=== PATIENT | female | born 1950 | race Caucasian/White ===

== ENCOUNTER 2016-08-27 06:01 | Day surgery (SDC) | payer OTHER ==
[2016-08-25 15:15] VITALS: BMI 26.5
[2016-08-27] MEDS ORDERED: LIDOCAINE HCL 2% (20ML MULTI-DOSE VIAL) NR ONE (07:17)
[2016-08-27] MEDS ORDERED: ePHEDrine SULFATE 50 MG/1 ML AMPULE ONE (07:18)
[2016-08-27] MEDS ORDERED: SUCCINYLCHOLINE CHLORIDE 200 MG/10 ML VIAL ONE (07:19)
[2016-08-27] MEDS ORDERED: PROPOFOL 20 ML ONE ×4 (07:19)
[2016-08-27] MEDS ORDERED: MIDAZOLAM HCL 2 MG/2 ML SINGLE DOSE VIAL ONE (07:19)
[2016-08-27 08:22] VITALS: TEMP 97.7
[2016-08-27] MEDS ORDERED: ACETAMINOPHEN 325 MG TABLET (FP) PO PRN (08:34)
[2016-08-27] MEDS ORDERED: oxyCODONE HCL 5 MG TABLET PO PRN ×2 (08:34)
[2016-08-27] MEDS ORDERED: ONDANSETRON 4 MG/2 ML VIAL IVPUSH PRN (08:34)
[2016-08-27] MEDS ORDERED: LACTATED RINGERS SOLUTION 1,000 ML IV SCH (08:45)
[2016-08-27 11:50] VITALS: BP 110/56; PULSE 71
--- NOTE | 2016-09-01 11:13 | OP ---
DATE OF OPERATION: 08/27/2016 PREOPERATIVE DIAGNOSIS: Left carpal tunnel syndrome. POSTOPERATIVE DIAGNOSIS: Left carpal tunnel syndrome. OPERATIVE PROCEDURE: Left carpal tunnel release. ANESTHESIA: Local with sedation. COMPLICATIONS: None. ESTIMATED BLOOD LOSS: Minimal. INDICATIONS FOR PROCEDURE: The patient is a 66-year-old female with above finding indicated for operative treatment. Risks, benefits, and alternatives were discussed with the patient at length. Proper informed consent was obtained. DESCRIPTION OF PROCEDURE: After proper identification of patient and correct operative site, the patient was brought to the operating room and placed supine on the table, prominences well padded. Sedation was given by the anesthesiologist. Local anesthesia was given with 2% lidocaine. Left upper extremity was prepped and draped in a sterile fashion. A well-padded tourniquet was placed with sterile prep. Esmarch bandage used to exsanguinate the left upper extremity. Tourniquet was inflated to 250 mmHg. A longitudinal incision was made at the proximal aspect of the palm. Incision was taken sharply through the skin with sharp and blunt dissection in the subcutaneous tissues. Palmar fascia was divided longitudinally. The transverse carpal ligament was divided longitudinally along with the distal 4 cm of the antebrachial fascia under direct visualization with loupe magnification. This provided complete release of the median nerve at the wrist. The wound was irrigated with copious amounts of normal saline and repaired with a 5-0 nylon suture. Sterile dressings were applied. The patient was reversed from anesthesia and brought to the recovery room in stable condition. She tolerated the procedure well. Chetan [id number]
== END 2016-08-27 09:15 | disposition home or self-care (01) ==
LOC: FASU 06:01
PROVIDERS: ATTEND Orthopaedic Surgery Hand Surgery
PROC: 01N50ZZ Release Median Nerve, Open Approach (ICD-10-PCS; principal; 2016-08-27 07:50)
DX: G56.02 Carpal tunnel syndrome, left upper limb (principal)

== ENCOUNTER 2016-12-31 07:28 | Day surgery (SDC) | payer OTHER ==
[2016-12-25 11:55] VITALS: BMI 26.5
[2016-12-31] MEDS ORDERED: MIDAZOLAM HCL 2 MG/2 ML SINGLE DOSE VIAL ONE (07:57)
[2016-12-31] MEDS ORDERED: ONDANSETRON 4 MG/2 ML VIAL IVPUSH PRN (08:43)
[2016-12-31] MEDS ORDERED: oxyCODONE HCL 5 MG TABLET PO PRN (08:43)
[2016-12-31] MEDS ORDERED: ACETAMINOPHEN 325 MG TABLET (FP) PO PRN (08:43)
[2016-12-31] MEDS ORDERED: LACTATED RINGERS SOLUTION 1,000 ML IV SCH (08:45)
[2016-12-31 09:51] VITALS: BP 106/52; PULSE 56; TEMP 98
--- NOTE | 2017-01-02 08:39 | OP ---
DATE OF OPERATION: 12/31/2016 PREOPERATIVE DIAGNOSIS: Right carpal tunnel syndrome. POSTOPERATIVE DIAGNOSIS: Right carpal tunnel syndrome. OPERATIVE PROCEDURE: Right carpal tunnel release. ANESTHESIA: Local with sedation. COMPLICATIONS: None. ESTIMATED BLOOD LOSS: Minimal. INDICATION FOR PROCEDURE: The patient is a 66-year-old female with the above finding indicated for operative treatment. Risks, benefits, and alternatives were discussed with the patient at length. Proper informed consent was obtained. PROCEDURE: After proper identification of the patient and the correct operative site, the patient was brought to the operating room and placed supine on the operating room table. All bony prominences were well padded. Sedation was given by the anesthesiologist. Local anesthesia was given with 2% lidocaine. Right upper extremity was prepped and draped in the usual sterile fashion. A well-padded tourniquet was placed with a sterile prep. An Esmarch bandage was used to exsanguinate the right upper extremity, and tourniquet was inflated to 250 mmHg. A longitudinal incision was made in the proximal aspect of the palm. Incision was taken sharply through the skin, with blunt and sharp dissection through the subcutaneous tissues. Palmar fascia was divided longitudinally. Transcarpal ligament was divided longitudinally. This was done under direct visualization under loupe magnification. This provided complete release of the median nerve at the wrist. Wound was irrigated with copious amounts of normal saline and repaired with a 5-0 nylon suture. Sterile dressings were applied. Patient was reversed from sedation and brought to the recovery room in stable condition. She tolerated the procedure well. Chetan [id number]
== END 2016-12-31 09:52 | disposition home or self-care (01) ==
LOC: FASU 07:28
PROVIDERS: ATTEND Orthopaedic Surgery Hand Surgery
PROC: 01N50ZZ Release Median Nerve, Open Approach (ICD-10-PCS; principal; 2016-12-31 08:46)
DX: G56.01 Carpal tunnel syndrome, right upper limb (principal)

== ENCOUNTER 2019-04-20 09:03 | Day surgery (SDC) | payer OTHER ==
[2019-04-19 16:54] VITALS: BMI 28.5
[2019-04-20 12:16] VITALS: BP 130/70; PULSE 68; TEMP 97.9
--- NOTE | 2019-04-21 11:11 | PATH ---
Surgical Pathology Report Patient Name: KATY OMALLEY [facility]. Rec. #: [id number] /Age/Gender: 1950 (Age: 68) / F Account: [id number] Location: [facility]-ENDOSCOPY Taken: 04/20/2019 Received: 04/20/2019 Reported: 04/21/2019 Physicians: Kenny Paulson M.D. Specimen(s) Received A: RIGHT COLON B: DESCENDING COLON Clinical History Diverticulosis Postoperative diagnosis: Colon polyp, diverticulosis Final Diagnosis A. COLON, RIGHT, POLYPS, POLYPECTOMY: POLYPOID COLONIC MUCOSA WITH PROMINENT LYMPHOID AGGREGATE. POLYPOID COLONIC MUCOSA WITHOUT SIGNIFICANT PATHOLOGIC FINDINGS. B. DESCENDING COLON, POLYP, POLYPECTOMY: POLYPOID COLONIC MUCOSA WITH MILD SUPERFICIAL HYPERPLASTIC FEATURES. Electronically Signed Deann Rodriguez M.D. Gross Description A. Received in formalin, labeled "polyps right colon" are 5 lopez, irregular portions of soft tissue ranging from 0.2-0.3 cm. in greatest dimension. The specimens are submitted in toto in one cassette. B. Received in formalin, labeled "polyp descending colon" is a lopez, irregular portion of soft tissue measuring 0.2 cm. in greatest dimension. The specimen is submitted in toto in one cassette. 04/20/2019 saudi04/20/2019
== END 2019-04-20 12:05 | disposition home or self-care (01) ==
LOC: JASU-ENDO 09:03
PROVIDERS: ATTEND Internal Medicine Gastroenterology
PROC: 0DBM8ZX Excision of Descending Colon, Via Natural or Artificial Opening Endoscopic, Diagnostic (ICD-10-PCS; 2019-04-20)
PROC: 0DBK8ZX Excision of Ascending Colon, Via Natural or Artificial Opening Endoscopic, Diagnostic (ICD-10-PCS; principal; 2019-04-20 09:45)
DX: Z12.11 Encounter for screening for malignant neoplasm of colon (principal); Z86.010 Personal history of colon polyps; D12.2 Benign neoplasm of ascending colon; D12.4 Benign neoplasm of descending colon; K57.30 Diverticulosis of large intestine without perforation or abscess without bleeding
CPT/HCPCS: 82962

== ENCOUNTER 2020-06-09 19:42 | Emergency (ER) | payer OTHER ==
[2020-06-09 20:25] VITALS: BP 154/67; PULSE 75; TEMP 98.7; BMI 28.8
[2020-06-09] MEDS ORDERED: ACETAMINOPHEN 500 MG TABLET (FP) PO ONE (20:53)
[2020-06-09] MEDS ORDERED: ACETAMINOPHEN 325 MG TABLET (FP) ONE (20:55)
[2020-06-09] MEDS ORDERED: DIPHTH,PERTUSS(ACELL),TET 0.5 ML DISP.SYRIN IM ONE ×2 (22:29→22:34)
== END 2020-06-09 22:42 | disposition home or self-care (01) ==
LOC: FER 19:42
PROC: 3E0234Z Introduction of Serum, Toxoid and Vaccine into Muscle, Percutaneous Approach (ICD-10-PCS; principal; 2020-06-09)
DX: M79.641 Pain in right hand (principal); M25.561 Pain in right knee
CPT/HCPCS: 73110-TC-LT-FY; 73130-TC-LT-FY; 73562-TC-RT-FY; 90715; 99284-25

== ENCOUNTER 2021-09-07 17:32 | Observation (INO) | payer OTHER ==
[2021-09-07] MEDS ORDERED: MECLIZINE HCL 25 MG TABLET (FP) PO ONE (18:09)
[2021-09-07] MEDS ORDERED: SODIUM CHLORIDE 1,000 ML IV SCH (18:15)
[2021-09-07] MEDS ORDERED: MECLIZINE HCL 25 MG TABLET (FP) ONE (18:26)
[2021-09-07 18:43] LABS: INR 0.99 (0.83-1.09); PROTHROMBIN TIME (PATIENT) 11.4 SEC (9.7-13.0)
[2021-09-07 19:01] LABS: HEMATOCRIT 38.6 % (32.4-45.2); HEMOGLOBIN 13.6 G/dL (10.7-15.3); MCHC 35.3 g/dl (32.0-36.0); MEAN CELL VOLUME 85.3 fl (80-96); MEAN PLT VOLUME 9.5 fl (7.5-11.1); PLATELET COUNT 254.4 10^3/uL (134-434); RBC 4.53 10^6/uL (3.60-5.2); RDW 14.3 % (11.6-15.6); WHITE BLOOD COUNT 7.7 10^3/uL (4.0-10.8)
[2021-09-07 19:03] LABS: ALBUMIN 3.7 g/dl (3.4-5.0); BILIRUBIN,TOTAL 0.5 mg/dl (0.2-1); CALCIUM 9.3 mg/dl (8.5-10); CREATININE 1.3 mg/dl (0.55-1.3); TOT PROT 6.1 g/dl (6.4-8.2)
[2021-09-07 19:10] LABS: PLATELET ESTIMATE ADEQUATE
[2021-09-07 19:12] LABS: CHOLESTEROL 179 mg/dl (50-200); HDL CHOLESTEROL 65 mg/dl (40-60); TRIGLYCERIDES 184 mg/dl (0-150)
[2021-09-07 19:19] LABS: LDL CHOLESTEROL (ONLY SJRH) 78 mg/dL (5-100)
[2021-09-07 22:20] VITALS: BMI 27.1
[2021-09-08] MEDS: ACETAMINOPHEN 325 MG TABLET (FP) PO PRN ×2 (02:46→09:59)
[2021-09-08] MEDS: ENOXAPARIN NA (PORCINE) 40 MG/0.4 ML DISP.SYRIN SQ SCH (10:00)
[2021-09-08 10:03] LABS: ALBUMIN 3.1 g/dl (3.4-5.0); BILIRUBIN,TOTAL 0.4 mg/dl (0.2-1); CALCIUM 8.8 mg/dl (8.5-10); CREATININE 0.7 mg/dl (0.55-1.3); MAGNESIUM 1.9 mg/dL (1.8-2.4); TOT PROT 5.7 g/dl (6.4-8.2)
[2021-09-08] MEDS ORDERED: POTASSIUM CHLORIDE TABS 20 MEQ TABLET.ER (FP) PO ONE (11:00)
[2021-09-08 11:16] LABS: HEMATOCRIT 36.8 % (32.4-45.2); HEMOGLOBIN 12.8 G/dL (10.7-15.3); MCH 30.1 pg (25.7-33.7); MCHC 34.8 g/dl (32.0-36.0); MEAN CELL VOLUME 86.6 fl (80-96); MEAN PLT VOLUME 9.6 fl (7.5-11.1); PLATELET COUNT 217.3 10^3/uL (134-434); RBC 4.25 10^6/uL (3.60-5.2); RDW 14.9 % (11.6-15.6); WHITE BLOOD COUNT 6.3 10^3/uL (4.0-10.8)
[2021-09-08] MEDS: INSULIN SLIDING SCALE (NOVOLOG) 1 VIAL SQ SCH ×3 (11:35→21:27)
[2021-09-08 11:59] LABS: PLATELET ESTIMATE ADEQUATE
[2021-09-08] MEDS: FAMOTIDINE 20 MG TABLET PO SCH (12:24)
[2021-09-08] MEDS: LEVOTHYROXINE NA 50 MCG TABLET (FP) PO SCH (12:24)
[2021-09-08] MEDS: SODIUM CHLORIDE 1,000 ML IV SCH (12:24)
[2021-09-08] MEDS: SUCRALFATE 1 GM TABLET (FP) PO SCH ×2 (16:37→22:59)
[2021-09-08] MEDS ORDERED: ATORVASTATIN CA 20 MG TABLET (FP) PO SCH (22:00)
[2021-09-08] MEDS ORDERED: LOSARTAN POTASSIUM 50 MG TABLET PO SCH (22:00)
[2021-09-08] MEDS ORDERED: amLODIPine BESYLATE 5 MG TABLET (FP) PO SCH ×2 (22:00)
[2021-09-08] MEDS ORDERED: ATORVASTATIN CA 10 MG TABLET (FP) PO SCH (22:00)
[2021-09-08] MEDS ORDERED: MONTELUKAST NA 10 MG TABLET PO SCH (22:00)
[2021-09-09] MEDS: SUCRALFATE 1 GM TABLET (FP) PO SCH ×3 (06:59→16:16)
[2021-09-09] MEDS: LEVOTHYROXINE NA 50 MCG TABLET (FP) PO SCH (06:59)
[2021-09-09] MEDS: INSULIN SLIDING SCALE (NOVOLOG) 1 VIAL SQ SCH ×3 (06:59→16:16)
[2021-09-09] MEDS: FAMOTIDINE 20 MG TABLET PO SCH (09:29)
[2021-09-09] MEDS: ENOXAPARIN NA (PORCINE) 40 MG/0.4 ML DISP.SYRIN SQ SCH (09:36)
[2021-09-09] MEDS ORDERED: LORATADINE 10 MG TABLET PO SCH (10:00)
[2021-09-09] MEDS: SODIUM CHLORIDE 1,000 ML IV SCH (11:00)
[2021-09-09 17:13] VITALS: BP 130/64; PULSE 69; TEMP 98.1
== END 2021-09-09 17:14 | disposition home or self-care (01) ==
LOC: FER 17:32 → INTOOBSV 20:00 → FM/S 20:00
PROVIDERS: ADMIT Internal Medicine; ATTEND Internal Medicine
PROC: 3E0337Z Introduction of Electrolytic and Water Balance Substance into Peripheral Vein, Percutaneous Approach (ICD-10-PCS; principal; 2021-09-07)
DX: R42 Dizziness and giddiness (principal); G81.94 Hemiplegia, unspecified affecting left nondominant side; R20.0 Anesthesia of skin; E78.5 Hyperlipidemia, unspecified; K21.9 Gastro-esophageal reflux disease without esophagitis; K58.9 Irritable bowel syndrome, unspecified; E03.9 Hypothyroidism, unspecified; J45.909 Unspecified asthma, uncomplicated; E11.9 Type 2 diabetes mellitus without complications; I10 Essential (primary) hypertension; Z88.8 Allergy status to other drugs, medicaments and biological substances
CPT/HCPCS: 36415; 70450-TC; 80053; 80061; 82607; 82962; 83036; 83735; 84443; 84484; 85027; 85610; 85730; 93005; 99285-25; C9803-CS; G0378; U0003; U0005

== ENCOUNTER 2023-09-25 15:43 | Observation (INO) | payer OTHER ==
[2023-09-25] MEDS ORDERED: MECLIZINE HCL 25 MG TABLET (FP) ONE (16:55)
[2023-09-25] MEDS: MECLIZINE HCL 25 MG TABLET (FP) PO ONE (16:58)
[2023-09-25] MEDS: SODIUM CHLORIDE 0.9% 500 ML INFUS.BAG IV ONE (16:58)
[2023-09-25 17:14] LABS: HEMATOCRIT 45.6 % (32.4-45.2); HEMOGLOBIN 14.6 G/dL (10.7-15.3); MCH 27.7 pg (25.7-33.7); MCHC 31.9 g/dl (32.0-36.0); MEAN CELL VOLUME 86.8 fl (80-96); MEAN PLT VOLUME 9.2 fl (7.5-11.1); PLATELET COUNT 234.8 10^3/uL (134-434); RBC 5.25 10^6/uL (3.60-5.2); RDW 15.2 % (11.6-15.6); WHITE BLOOD COUNT 6.5 10^3/uL (4.0-10.8)
[2023-09-25 17:51] LABS: ALBUMIN 4.2 g/dl (3.4-5.0); ALK PHOS 81 U/L (45-117); ANION GAP 9 mmol/L (4-13); BILIRUBIN,TOTAL 0.7 mg/dl (0.2-1); CALCIUM 9.5 mg/dl (8.5-10.1); CHLORIDE 95 mmol/L (98-107); CO2 31 mmol/L (21-32); CREATININE 1.1 mg/dl (0.6-1.3); GLUCOSE,RANDOM 82 mg/dl (74-106); POTASSIUM 3.9 mmol/L (3.5-5.1); SGOT/AST 16 U/L (15-37); SGPT/ALT 13 U/L (7-52); SODIUM 135 mmol/L (136-145); TOT PROT 6.5 g/dl (6.4-8.2)
[2023-09-25 19:13] LABS: PLATELET ESTIMATE ADEQUATE
[2023-09-25] MEDS ORDERED: DOCUSATE SODIUM 100 MG CAPSULE (FP) PO PRN (20:54)
[2023-09-25 21:07] VITALS: BMI 64.7
[2023-09-25] MEDS: INSULIN ASPART SLIDING SCALE (NOVOLOG) 1 VIAL SQ SCH (23:32)
[2023-09-26] MEDS: SODIUM CHLORIDE 1,000 ML IV SCH (02:00)
[2023-09-26] MEDS: LEVOTHYROXINE NA 50 MCG TABLET (FP) PO SCH (06:14)
[2023-09-26] MEDS: SUCRALFATE 1 GM TABLET (FP) PO SCH (06:33)
[2023-09-26] MEDS: PREGABALIN 50 MG CAPSULE PO SCH (06:33)
[2023-09-26 08:29] LABS: HEMATOCRIT 42.7 % (32.4-45.2); HEMOGLOBIN 13.8 G/dL (10.7-15.3); MCH 27.9 pg (25.7-33.7); MCHC 32.2 g/dl (32.0-36.0); MEAN CELL VOLUME 86.5 fl (80-96); MEAN PLT VOLUME 9.5 fl (7.5-11.1); PLATELET COUNT 234.7 10^3/uL (134-434); RBC 4.94 10^6/uL (3.60-5.2); RDW 15.3 % (11.6-15.6); WHITE BLOOD COUNT 5.8 10^3/uL (4.0-10.8)
[2023-09-26 08:46] LABS: CALCIUM 9.4 mg/dl (8.5-10.1); CREATININE 0.8 mg/dl (0.6-1.3); POTASSIUM 3.8 mmol/L (3.5-5.1)
[2023-09-26] MEDS: FAMOTIDINE 20 MG TABLET PO SCH (09:55)
[2023-09-26] MEDS: DULoxetine HCL 20 MG CAPSULE.DR PO SCH (09:55)
[2023-09-26] MEDS: MONTELUKAST NA 10 MG TABLET PO SCH (21:30)
[2023-09-26] MEDS: ATORVASTATIN CA 10 MG TABLET (FP) PO SCH (21:30)
[2023-09-26] MEDS: DONEPEZIL HCL 10 MG TABLET (FP) PO SCH (21:30)
[2023-09-27] MEDS: ACETAMINOPHEN 325 MG TABLET (FP) PO PRN (05:09)
[2023-09-27] MEDS: PREGABALIN 100 MG, PREGABALIN 50 MG PO SCH (07:31)
[2023-09-27] MEDS: ENOXAPARIN NA (PORCINE) 40 MG/0.4 ML DISP.SYRIN SQ SCH (09:21)
[2023-09-27 09:34] LABS: PHOSPHOROUS 3.5 (2.5-4.9)
[2023-09-27 11:23] LABS: N-TERMINAL BNP 118.9 pg/ml (5-125)
[2023-09-28 08:54] LABS: ALBUMIN 3.6 g/dl (3.4-5.0); BILIRUBIN,TOTAL 0.5 mg/dl (0.2-1); CALCIUM 9.2 mg/dl (8.5-10.1); CREATININE 0.8 mg/dl (0.6-1.3); POTASSIUM 3.9 mmol/L (3.5-5.1); TOT PROT 5.6 g/dl (6.4-8.2)
[2023-09-28 09:22] LABS: EOS % 2.7 % (0-4.5); HEMATOCRIT 36.5 % (32.4-45.2); HEMOGLOBIN 12.6 GM/dL (10.7-15.3); LYMPH % 38.5 % (8-40); MCH 28.9 pg (25.7-33.7); MCHC 34.5 g/dl (32.0-36.0); MEAN CELL VOLUME 83.9 fl (80-96); MEAN PLT VOLUME 9.1 fl (7.5-11.1); MONO % 8.9 % (3.8-10.2); NEUT % 48.9 % (42.8-82.8); PLATELET COUNT 231 10^3/uL (134-434); RBC 4.35 M/mm3 (3.60-5.2)
[2023-09-28] MEDS ORDERED: REGADENOSON 0.4 MG/5 ML PRE-FILLED SYRINGE IVPUSH ONE (12:01)
[2023-09-28] MEDS: REGADENOSON 0.4 MG/5 ML PRE-FILLED SYRINGE IVPUSH ONE (13:04)
[2023-09-28 14:21] VITALS: BP 138/64; PULSE 51; RESP 17; TEMP 97.3
== END 2023-09-28 15:33 | disposition home or self-care (01) ==
LOC: FER 15:43 → FM/S 19:40
PROVIDERS: ADMIT Internal Medicine
PROC: 3E033GC Introduction of Other Therapeutic Substance into Peripheral Vein, Percutaneous Approach (ICD-10-PCS; principal; 2023-09-25)
PROC: 3E0337Z Introduction of Electrolytic and Water Balance Substance into Peripheral Vein, Percutaneous Approach (ICD-10-PCS; 2023-09-25)
DX: R55 Syncope and collapse (principal); E86.0 Dehydration; J45.909 Unspecified asthma, uncomplicated; E11.40 Type 2 diabetes mellitus with diabetic neuropathy, unspecified; R79.89 Other specified abnormal findings of blood chemistry; K21.9 Gastro-esophageal reflux disease without esophagitis; E78.5 Hyperlipidemia, unspecified; E03.9 Hypothyroidism, unspecified; R00.1 Bradycardia, unspecified; R41.3 Other amnesia; I10 Essential (primary) hypertension; K58.9 Irritable bowel syndrome, unspecified; Z96.652 Presence of left artificial knee joint; I24.89 Other forms of acute ischemic heart disease
CPT/HCPCS: 0241U-QW; 36415; 70450-TC; 71046-TC-FY; 78452-TC; 80048; 80053; 80061; 82607; 82962; 83036; 83735; 83880; 84100; 84439; 84443; 84484; 85025; 85027; 93005; 93017; 93306-TC; 93880-TC; 96361; 96374; 97116-GP; 97162-GP; 99285-25; A9502; G0378

== ENCOUNTER → 2023-12-09 | Day surgery (SDC) | payer OTHER | END | disposition home or self-care (01) | LOC: JRADIR 09:50 | PROVIDERS: ATTEND Internal Medicine Endocrinology, Diabetes & Metabolism | PROC: 0GBH3ZX Excision of Right Thyroid Gland Lobe, Percutaneous Approach, Diagnostic (ICD-10-PCS; principal; 2023-12-09) | DX: E04.1 Nontoxic single thyroid nodule (principal) | CPT/HCPCS: 10005; 76942; 88173; 88305-TC ==

== ENCOUNTER 2023-12-30 18:16 | Emergency (ER) | payer OTHER ==
[2023-12-30 18:28] VITALS: BP 149/75; PULSE 79; RESP 18; TEMP 98; BMI 28.0
[2023-12-30] MEDS ORDERED: ONDANSETRON 4 MG/2 ML VIAL ONE (19:24)
[2023-12-30] MEDS: ONDANSETRON 4 MG/2 ML VIAL IVPUSH ONE (19:36)
[2023-12-30] MEDS: SODIUM CHLORIDE 0.9% 500 ML INFUS.BAG IV ONE (19:36)
[2023-12-30 19:41] LABS: HEMATOCRIT 44.7 % (32.4-45.2); HEMOGLOBIN 14.6 G/dL (10.7-15.3); MCH 28.8 pg (25.7-33.7); MCHC 32.6 g/dl (32.0-36.0); MEAN CELL VOLUME 88.4 fl (80-96); MEAN PLT VOLUME 8.6 fl (7.5-11.1); PLATELET COUNT 226.8 10^3/uL (134-434); RBC 5.06 10^6/uL (3.60-5.2); RDW 15.3 % (11.6-15.6); WHITE BLOOD COUNT 5.8 10^3/uL (4.0-10.8)
[2023-12-30 20:06] LABS: ALBUMIN 4.2 g/dl (3.4-5.0); BILIRUBIN,TOTAL 0.6 mg/dl (0.2-1); CALCIUM 9.8 mg/dl (8.5-10.1); CREATININE 0.8 mg/dl (0.6-1.3); MAGNESIUM 1.9 mg/dL (1.8-2.4); PHOSPHOROUS 2.7 (2.5-4.9); POTASSIUM 3.4 mmol/L (3.5-5.1); TOT PROT 6.8 g/dl (6.4-8.2)
[2023-12-30] MEDS ORDERED: METOCLOPRAMIDE HCL INJECTION 10 MG/2 ML VIAL ONE (21:23)
[2023-12-30] MEDS: METOCLOPRAMIDE HCL INJECTION 10 MG/2 ML VIAL IVPB STA (21:28)
[2023-12-30 21:32] LABS: N-TERMINAL BNP 79.1 pg/ml (5-125)
== END 2023-12-30 22:42 | disposition home or self-care (01) ==
LOC: FER 18:16
PROC: 3E033GC Introduction of Other Therapeutic Substance into Peripheral Vein, Percutaneous Approach (ICD-10-PCS; principal; 2023-12-30)
PROC: 3E033GC Introduction of Other Therapeutic Substance into Peripheral Vein, Percutaneous Approach (ICD-10-PCS; 2023-12-30)
DX: R11.2 Nausea with vomiting, unspecified (principal); R05.9 Cough, unspecified; R10.84 Generalized abdominal pain; B34.9 Viral infection, unspecified
CPT/HCPCS: 36415; 71045-TC-FY; 80053; 82550; 83605; 83735; 83880; 84100; 84484; 85027; 93005; 99285-25

== ENCOUNTER 2024-06-29 06:46 | Day surgery (SDC) | payer OTHER ==
[2024-06-14 14:29] VITALS: BMI 29.5
[2024-06-29 09:05] VITALS: TEMP 98
[2024-06-29 09:17] VITALS: RESP 18
[2024-06-29 10:28] VITALS: BP 105/46; PULSE 51
== END 2024-06-29 10:20 | disposition home or self-care (01) ==
LOC: JASU-ENDO 06:46
PROVIDERS: ATTEND Internal Medicine Gastroenterology
PROC: 0DJD8ZZ Inspection of Lower Intestinal Tract, Via Natural or Artificial Opening Endoscopic (ICD-10-PCS; principal; 2024-06-29 09:00)
DX: Z12.11 Encounter for screening for malignant neoplasm of colon (principal); K57.30 Diverticulosis of large intestine without perforation or abscess without bleeding; K64.8 Other hemorrhoids; K59.04 Chronic idiopathic constipation; Z86.0100 Personal history of colon polyps, unspecified
CPT/HCPCS: 82962